=== PATIENT | female | born 1945 | race Caucasian/White ===

== ENCOUNTER 2017-03-12 07:11 | Outpatient (CLI) | payer MEDICARE, BC ==
[2017-03-12 19:02] LABS: BASOPHILS % (AUTO) 0.7 %; EOSINOPHILS # (AUTO) 0.4 10^3/uL (0.0-0.7); EOSINOPHILS % (AUTO) 9.1 %; HCT - HEMATOCRIT 34.9 % (37.0-47.0); HGB - HEMOGLOBIN 11.6 g/dL (12.0-16.0); LYMPHOCYTES # (AUTO) 1.2 10^3/uL (1.5-3.5); LYMPHOCYTES % (AUTO) 25.6 %; MEAN CORPUSCULAR HEMOGLOBIN 31.2 pg (27.0-31.0); MEAN CORPUSCULAR HGB CONC 33.3 g/dL (32.0-36.0); MEAN CORPUSCULAR VOLUME 93.7 fL (81.0-99.0); MEAN PLATELET VOLUME 9.8 fL (7.9-10.8); MONOCYTES # (AUTO) 0.5 10^3/uL (0.0-1.0); MONOCYTES % (AUTO) 11.2 %; NEUTROPHILS # (AUTO) 2.4 10^3/uL (1.5-6.6); NEUTROPHILS % (AUTO) 53.4 %; NUCLEATED RED BLOOD CELLS AUTO 0.1 /100WBC; RED BLOOD COUNT 3.72 10^6/uL (4.20-5.40); RED CELL DISTRIBUTION WIDTH 13.7 % (12.0-15.0); UNCORRECTED WHITE BLOOD COUNT 4.5 x10^3/uL; WHITE BLOOD COUNT 4.5 x10^3/uL (4.8-10.8)
[2017-03-12 19:24] LABS: ALBUMIN/GLOBULIN RATIO 1.3 (1.0-2.2); BILIRUBIN,TOTAL 0.8 mg/dL (0.2-1.0); BUN - BLOOD UREA NITROGEN 17 mg/dL (6-20); CALCIUM 9.5 mg/dL (8.5-10.3); CARBON DIOXIDE - CO2 30 mmol/L (21-32); CHLORIDE 98 mmol/L (101-111); CHOL/HDL RATIO 2.3 (<4.4); CHOLESTEROL 192 mg/dL; CREATININE 0.9 mg/dL (0.4-1.0); GFR - MDRD 62 (>89); GLUCOSE 102 mg/dL (70-100); HDL CHOLESTEROL 85 mg/dL; LDL/HDL RATIO 1.2 (<4.4); POTASSIUM 3.9 mmol/L (3.5-5.0); SODIUM 136 mmol/L (135-145); TOTAL PROTEIN 7.3 g/dL (6.7-8.2); TRIGLYCERIDES 46 mg/dL; VLDL CHOLESTEROL 9 mg/dL
[2017-03-12 19:39] LABS: HEMOGLOBIN A1C 0.46 g/dL
== END 2017-03-12 07:12 | disposition home or self-care (01) ==
LOC: LAB.WCP 07:11
PROVIDERS: ATTEND Family Medicine
DX: R73.01 Impaired fasting glucose (principal); E78.5 Hyperlipidemia, unspecified; I48.0 Paroxysmal atrial fibrillation; I10 Essential (primary) hypertension
CPT/HCPCS: 36415; 80053; 80061; 83036; 84443; 85025

== ENCOUNTER 2017-05-16 12:15 | Outpatient (CLI) | payer MEDICARE, BC | END 2017-05-16 12:16 | disposition home or self-care (01) | LOC: LAB.WCP 12:15 | PROVIDERS: ATTEND Family Medicine | DX: L08.89 Other specified local infections of the skin and subcutaneous tissue (principal) | CPT/HCPCS: 87070; 87205 ==

== ENCOUNTER 2017-11-15 09:45 | Outpatient (CLI) | payer MEDICARE, BC | END 2017-11-15 09:46 | disposition home or self-care (01) | LOC: LAB.WCP 09:45 | PROVIDERS: ATTEND Family Medicine | DX: N39.0 Urinary tract infection, site not specified (principal) | CPT/HCPCS: 87086 ==

== ENCOUNTER 2018-01-08 08:00 | Outpatient (CLI) | payer MEDICARE, BC | END 2018-01-08 08:01 | disposition home or self-care (01) | LOC: LAB.R 08:00 | PROVIDERS: ATTEND Family Medicine | DX: N39.0 Urinary tract infection, site not specified (principal) | CPT/HCPCS: 87077; 87086 ==

== ENCOUNTER 2018-01-30 08:00 | Outpatient (CLI) | payer MEDICARE, BC ==
[2018-01-30 12:56] LABS: BASOPHILS % (AUTO) 0.8 %; EOSINOPHILS # (AUTO) 0.2 10^3/uL (0.0-0.7); EOSINOPHILS % (AUTO) 3.3 %; HGB - HEMOGLOBIN 10.6 g/dL (12.0-16.0); LYMPHOCYTES # (AUTO) 0.5 10^3/uL (1.5-3.5); MEAN CORPUSCULAR HEMOGLOBIN 30.7 pg (27.0-31.0); MEAN CORPUSCULAR HGB CONC 33.9 g/dL (32.0-36.0); MEAN CORPUSCULAR VOLUME 90.6 fL (81.0-99.0); MEAN PLATELET VOLUME 10.8 fL (7.9-10.8); MONOCYTES # (AUTO) 0.6 10^3/uL (0.0-1.0); MONOCYTES % (AUTO) 10.7 %; NEUTROPHILS # (AUTO) 4.4 10^3/uL (1.5-6.6); NEUTROPHILS % (AUTO) 76.2 %; PLT - PLATELET COUNT 166 10^3/uL (130-450); RED BLOOD COUNT 3.44 10^6/uL (4.20-5.40); RED CELL DISTRIBUTION WIDTH 14.9 % (12.0-15.0); WHITE BLOOD COUNT 5.8 x10^3/uL (4.8-10.8)
[2018-01-30 13:04] LABS: ALBUMIN/GLOBULIN RATIO 1.3 (1.0-2.2); BILIRUBIN,TOTAL 1.1 mg/dL (0.2-1.0); CALCIUM 9.4 mg/dL (8.5-10.3); CREATININE 1.1 mg/dL (0.4-1.0); TOTAL PROTEIN 7.2 g/dL (6.7-8.2)
[2018-01-30 13:08] LABS: HB2 TOTAL 11.3 g/dL; HEMOGLOBIN A1C 0.44 g/dL; HEMOGLOBIN A1C % 5.7 % (4.6-6.2)
== END 2018-01-30 08:01 | disposition home or self-care (01) ==
LOC: LAB.WCP 08:00
PROVIDERS: ATTEND Family Medicine
DX: R06.09 Other forms of dyspnea (principal); R73.01 Impaired fasting glucose
CPT/HCPCS: 36415; 80053; 83036; 83880; 85025

== ENCOUNTER 2018-04-04 10:44 | Outpatient (CLI) | payer MEDICARE, BC | END 2018-04-04 10:45 | disposition home or self-care (01) | LOC: LAB.R 10:44 | PROVIDERS: ATTEND Family Medicine | DX: R19.7 Diarrhea, unspecified (principal) | CPT/HCPCS: 81599; 83630; 87045; 87046; 87177; 87209; 87329; 87493 ==

== ENCOUNTER 2018-04-12 14:03 | Outpatient (CLI) | payer MEDICARE, BC ==
--- NOTE | 2018-04-12 15:39 | Ultrasound Report ---
Procedure Date: 04/12/2018 Accession Number: [id number] / [id number] Procedure: US - Breast Unilateral Limited CPT Code: FULL RESULT: EXAM: Breast Unilateral Limited DATE: 04/12/2018 3:32 PM CLINICAL HISTORY: LT AXILLA LUMP TECHNIQUE: Ultrasound of the palpable regions identified by the patient was performed, with herbicide service sales representative static images obtained. COMPARISON: Mammogram same day FINDINGS: In the left axilla, normal axillary lymph nodes are seen. No discrete solid or cystic mass is identified. No sonographically suspicious findings are appreciated. IMPRESSION: Negative examination. Recommendation: Routine annual screening, next due in August 2018, unless otherwise clinically indicated. BI-RADS Category 1 negative
--- NOTE | 2018-04-12 15:41 | Mammography Report ---
Procedure Date: 04/12/2018 Accession Number: [id number] / [id number] Procedure: VERNON - Diagnostic Dig LT CPT Code: FULL RESULT: EXAM: Diagnostic Dig LT DATE: 04/12/2018 2:31 PM CLINICAL HISTORY: Palpable abnormality left axilla, pain TECHNIQUE: Left CC, MLO, true lateral views COMPARISON: 08/09/2017, 07/05/2016, 06/21/2015, 03/09/2014, 12/27/2012, 12/08/2010 FINDINGS: The left breast demonstrates diffuse fatty replacement. No suspicious masses, clustered microcalcifications, or regions of architectural distortion are identified. Specifically, no mammographic abnormality is appreciated in the left axillary tail, at the marker placed on the palpable abnormality identified by the patient. Please also refer to left breast ultrasound of the same day. IMPRESSION: Negative examination RECOMMENDATION: Routine annual screening, next due in August 2018, unless otherwise clinically indicated. BIRADS CATEGORY 1: Negative STANDARD QUALIFYING STATEMENTS: 1. This examination was reviewed with the aid of Computer-Aided Detection (CAD). 2. A negative or benign imaging report should not delay biopsy if clinically suspicious findings are present. Consider surgical consultation if warrented. More than 5% of cancers are not identified by imaging. 3. Dense breasts may obscure an underlying neoplasm.
== END 2018-04-12 14:04 | disposition home or self-care (01) ==
LOC: DI 14:03
PROVIDERS: ATTEND Family Medicine
DX: N63.21 Unspecified lump in the left breast, upper outer quadrant (principal)
CPT/HCPCS: 76642

== ENCOUNTER 2018-05-06 16:58 | Outpatient (CLI) | payer MEDICARE, BC ==
[2018-05-06 17:44] LABS: ALBUMIN 4.2 g/dL (3.2-5.5); ALBUMIN/GLOBULIN RATIO 1.2 (1.0-2.2); BILIRUBIN,TOTAL 0.8 mg/dL (0.2-1.0); CALCIUM 9.5 mg/dL (8.5-10.3); TOTAL PROTEIN 7.6 g/dL (6.7-8.2)
[2018-05-06 17:58] LABS: BASOPHILS % (AUTO) 0.8 %; EOSINOPHILS # (AUTO) 0.4 10^3/uL (0.0-0.7); EOSINOPHILS % (AUTO) 6.2 %; HGB - HEMOGLOBIN 12.5 g/dL (12.0-16.0); LYMPHOCYTES % (AUTO) 17.9 %; MEAN CORPUSCULAR HEMOGLOBIN 30.3 pg (27.0-31.0); MEAN CORPUSCULAR HGB CONC 33.5 g/dL (32.0-36.0); MEAN CORPUSCULAR VOLUME 90.6 fL (81.0-99.0); MEAN RETIC VALUE 113.9; MONOCYTES # (AUTO) 0.8 10^3/uL (0.0-1.0); MONOCYTES % (AUTO) 13.7 %; NEUTROPHILS # (AUTO) 3.6 10^3/uL (1.5-6.6); NEUTROPHILS % (AUTO) 61.4 %; PLT - PLATELET COUNT 173 10^3/uL (130-450); RED BLOOD COUNT 4.11 10^6/uL (4.20-5.40); RED CELL DISTRIBUTION WIDTH 15.1 % (12.0-15.0); WHITE BLOOD COUNT 5.8 x10^3/uL (4.8-10.8)
== END 2018-05-06 16:59 | disposition home or self-care (01) ==
LOC: LAB 16:58
PROVIDERS: ATTEND Internal Medicine Gastroenterology
DX: Z80.0 Family history of malignant neoplasm of digestive organs (principal); D64.9 Anemia, unspecified; R13.10 Dysphagia, unspecified; K21.9 Gastro-esophageal reflux disease without esophagitis; Z79.01 Long term (current) use of anticoagulants
CPT/HCPCS: 36415; 80053; 82607; 82746; 83540; 84466; 85025; 85044; 85651

== ENCOUNTER 2018-05-17 15:15 | Outpatient (CLI) | payer MEDICARE, BC | END 2018-05-17 15:16 | disposition home or self-care (01) | LOC: LAB.R 15:15 | PROVIDERS: ATTEND Family Medicine | DX: N39.0 Urinary tract infection, site not specified (principal) | CPT/HCPCS: 87086 ==

== ENCOUNTER 2018-09-10 08:00 | Outpatient (CLI) | payer MEDICARE, BC ==
[2018-09-10 19:48] LABS: BILIRUBIN,URINE NEGATIVE (NEGATIVE); GLUCOSE, URINE (UA) NEGATIVE (NEGATIVE); KETONES,URINE (UA) NEGATIVE (NEGATIVE); LEUKOCYTE ESTERASE, URINE NEGATIVE (NEGATIVE); NITRITE,URINE NEGATIVE (NEGATIVE); OCCULT BLOOD,URINE TRACE-LYSE (NEGATIVE); PH,URINE 6.5 PH (5.0-7.5); PROTEIN,URINE NEGATIVE (NEGATIVE); UROBILINOGEN,URINE 0.2 (NORMAL) E.U./dL (NORMAL)
[2018-09-10 19:53] LABS: CLARITY,URINE CLEAR (CLEAR)
[2018-09-10 20:05] LABS: BACTERIA,URINE None Seen /HPF (None Seen); RBC,URINE None Seen /HPF (0-5); SQUAMOUS EPITHELIAL CELL,UR FEW Squamous (<= Few)
== END 2018-09-10 23:59 | disposition home or self-care (01) ==
LOC: LAB.R 08:00
PROVIDERS: ATTEND Family Medicine
DX: N10 Acute pyelonephritis (principal)
CPT/HCPCS: 81001; 87086

== ENCOUNTER 2018-10-21 08:00 | Outpatient (CLI) | payer MEDICARE, BC ==
[2018-10-21 19:18] LABS: BASOPHILS # (AUTO) 0.1 10^3/uL (0.0-0.1); BASOPHILS % (AUTO) 0.8 %; EOSINOPHILS # (AUTO) 0.4 10^3/uL (0.0-0.7); EOSINOPHILS % (AUTO) 6.5 %; HGB - HEMOGLOBIN 11.6 g/dL (12.0-16.0); LYMPHOCYTES % (AUTO) 15.5 %; MEAN CORPUSCULAR HEMOGLOBIN 30.6 pg (27.0-31.0); MEAN CORPUSCULAR HGB CONC 33.1 g/dL (32.0-36.0); MEAN CORPUSCULAR VOLUME 92.3 fL (81.0-99.0); MEAN PLATELET VOLUME 10.2 fL (7.9-10.8); MONOCYTES # (AUTO) 0.7 10^3/uL (0.0-1.0); MONOCYTES % (AUTO) 10.6 %; NEUTROPHILS # (AUTO) 4.3 10^3/uL (1.5-6.6); NEUTROPHILS % (AUTO) 66.6 %; PLT - PLATELET COUNT 194 10^3/uL (130-450); RED CELL DISTRIBUTION WIDTH 14.2 % (12.0-15.0); WHITE BLOOD COUNT 6.4 x10^3/uL (4.8-10.8)
[2018-10-21 19:38] LABS: HB2 TOTAL 12.2 g/dL; HEMOGLOBIN A1C 0.54 g/dL; HEMOGLOBIN A1C % 6.2 % (4.6-6.2)
[2018-10-21 19:59] LABS: ALBUMIN 3.9 g/dL (3.2-5.5); ALBUMIN/GLOBULIN RATIO 1.1 (1.0-2.2); ALKALINE PHOSPHATASE 35 IU/L (42-121); ALT ALANINE AMINOTRANSFERASE 18 IU/L (10-60); AST ASPARTATE AMINOTRANSFERASE 25 IU/L (10-42); BILIRUBIN,TOTAL 0.9 mg/dL (0.2-1.0); BUN - BLOOD UREA NITROGEN 19 mg/dL (6-20); CALCIUM 9.4 mg/dL (8.5-10.3); CARBON DIOXIDE - CO2 31 mmol/L (21-32); CHLORIDE 99 mmol/L (101-111); CHOL/HDL RATIO 2.4 (<4.4); CHOLESTEROL 167 mg/dL; GFR - MDRD 55 (>89); GLUCOSE 107 mg/dL (70-100); HDL CHOLESTEROL 70 mg/dL; LDL CHOLESTEROL,CALCULATED 85 mg/dL; LDL/HDL RATIO 1.2 (<4.4); SODIUM 136 mmol/L (135-145); TOTAL PROTEIN 7.3 g/dL (6.7-8.2); VLDL CHOLESTEROL 12 mg/dL
== END 2018-10-21 23:59 | disposition home or self-care (01) ==
LOC: LAB.WCP 08:00
PROVIDERS: ATTEND Family Medicine
DX: I10 Essential (primary) hypertension (principal); R73.01 Impaired fasting glucose; E78.5 Hyperlipidemia, unspecified; D50.9 Iron deficiency anemia, unspecified
CPT/HCPCS: 36415; 80053; 80061; 83036; 83721; 85025

== ENCOUNTER 2018-11-18 14:00 | Outpatient (CLI) | payer MEDICARE, BC ==
--- NOTE | 2018-11-19 06:12 | Mammography Report ---
Reason: ANNUAL SCREENING Procedure Date: 11/18/2018 Accession Number: [id number] / [id number] Procedure: VERNON - Screening Mammo w/Young CPT Code: FULL RESULT: EXAM: Screening Mammo w/Young DATE: 11/18/2018 3:46 PM CLINICAL HISTORY: Routine screening TECHNIQUE: Bilateral CC and MLO views were obtained. COMPARISON: 04/12/2018, 08/09/2017, 07/05/2016 and 06/21/2015 FINDINGS: There are scattered fibroglandular densities. There has been no significant interval change. No suspicious masses, clustered microcalcifications, or regions of architectural distortion are identified. Benign appearing vascular calcification and axillary lymph nodes are stable. IMPRESSION: Benign findings RECOMMENDATION: Routine annual screening unless otherwise clinically indicated. BIRADS CATEGORY 2: Benign findings STANDARD QUALIFYING STATEMENTS: 1. This examination was not reviewed with the aid of Computer-Aided Detection (CAD). 2. A negative or benign imaging report should not delay biopsy if clinically suspicious findings are present. Consider surgical consultation if warrented. More than 5% of cancers are not identified by imaging. 3. Dense breasts may obscure an underlying neoplasm. 4. This examination was reviewed with the aid of 3D breast imaging (tomosynthesis).
== END 2018-11-18 14:01 | disposition home or self-care (01) ==
LOC: DI 14:00
DX: Z12.31 Encounter for screening mammogram for malignant neoplasm of breast (principal)
CPT/HCPCS: 77063; 77067

== ENCOUNTER 2018-11-22 10:24 | Outpatient (CLI) | payer MEDICARE, BC | END 2018-11-22 23:59 | disposition home or self-care (01) | LOC: LAB.WCP 10:24 | PROVIDERS: ATTEND Family Medicine | DX: N39.0 Urinary tract infection, site not specified (principal) | CPT/HCPCS: 87086; 87181 ==

== ENCOUNTER 2018-12-18 08:00 | Outpatient (CLI) | payer MEDICARE, BC | END 2018-12-18 23:59 | disposition home or self-care (01) | LOC: LAB.WCP 08:00 | PROVIDERS: ATTEND Family Medicine | DX: I48.0 Paroxysmal atrial fibrillation (principal); Z79.01 Long term (current) use of anticoagulants ==

== ENCOUNTER 2019-01-15 11:47 | Outpatient (CLI) | payer MEDICARE, BC ==
[2019-01-15 19:19] LABS: BASOPHILS # (AUTO) 0.1 10^3/uL (0.0-0.1); BASOPHILS % (AUTO) 1.2 %; EOSINOPHILS # (AUTO) 0.5 10^3/uL (0.0-0.7); EOSINOPHILS % (AUTO) 8.1 %; HGB - HEMOGLOBIN 12.4 g/dL (12.0-16.0); LYMPHOCYTES # (AUTO) 1.2 10^3/uL (1.5-3.5); LYMPHOCYTES % (AUTO) 20.2 %; MEAN CORPUSCULAR HEMOGLOBIN 30.3 pg (27.0-31.0); MEAN CORPUSCULAR HGB CONC 33.3 g/dL (32.0-36.0); MEAN CORPUSCULAR VOLUME 91.2 fL (81.0-99.0); MEAN PLATELET VOLUME 10.3 fL (7.9-10.8); MONOCYTES # (AUTO) 0.6 10^3/uL (0.0-1.0); MONOCYTES % (AUTO) 10.4 %; NEUTROPHILS # (AUTO) 3.5 10^3/uL (1.5-6.6); NEUTROPHILS % (AUTO) 60.1 %; PLT - PLATELET COUNT 170 10^3/uL (130-450); RED CELL DISTRIBUTION WIDTH 15.4 % (12.0-15.0); WHITE BLOOD COUNT 5.8 x10^3/uL (4.8-10.8)
[2019-01-15 19:37] LABS: HEMOGLOBIN A1C 0.58 g/dL; HEMOGLOBIN A1C % 6.2 % (4.6-6.2)
[2019-01-15 19:40] LABS: ALBUMIN 4.3 g/dL (3.2-5.5); ALBUMIN/GLOBULIN RATIO 1.4 (1.0-2.2); ALKALINE PHOSPHATASE 33 IU/L (42-121); ALT ALANINE AMINOTRANSFERASE 19 IU/L (10-60); AST ASPARTATE AMINOTRANSFERASE 26 IU/L (10-42); BILIRUBIN,TOTAL 1.1 mg/dL (0.2-1.0); BUN - BLOOD UREA NITROGEN 24 mg/dL (6-20); CALCIUM 9.4 mg/dL (8.5-10.3); CARBON DIOXIDE - CO2 30 mmol/L (21-32); CHLORIDE 101 mmol/L (101-111); CHOL/HDL RATIO 2.3 (<4.4); CHOLESTEROL 190 mg/dL; GFR - MDRD 55 (>89); GLUCOSE 102 mg/dL (70-100); HDL CHOLESTEROL 83 mg/dL; LDL CHOLESTEROL,CALCULATED 97 mg/dL; LDL/HDL RATIO 1.2 (<4.4); SODIUM 136 mmol/L (135-145); TOTAL PROTEIN 7.4 g/dL (6.7-8.2); VLDL CHOLESTEROL 10 mg/dL
[2019-01-15 19:43] LABS: THYROID STIMULATING HORMONE 3.2 uIU/mL (0.34-5.60)
[2019-01-15 19:48] LABS: FERRITIN 66.1 ng/mL (11.0-306.8)
== END 2019-01-15 11:48 | disposition home or self-care (01) ==
LOC: LAB.WCP 11:47
PROVIDERS: ATTEND Family Medicine
DX: R73.01 Impaired fasting glucose (principal); D50.9 Iron deficiency anemia, unspecified; E78.5 Hyperlipidemia, unspecified; N28.9 Disorder of kidney and ureter, unspecified; I48.0 Paroxysmal atrial fibrillation
CPT/HCPCS: 36415; 80053; 80061; 82607; 82728; 83036; 83721; 84443; 85025

== ENCOUNTER 2019-02-14 13:09 | Outpatient (CLI) | payer MEDICARE, BC | END 2019-02-14 13:10 | disposition home or self-care (01) | LOC: RT 13:09 | PROVIDERS: ATTEND Nurse Practitioner Family | DX: I48.91 Unspecified atrial fibrillation (principal) | CPT/HCPCS: 93005 ==

== ENCOUNTER 2019-02-14 13:49 | Emergency (ER) | payer MEDICARE, BC ==
--- NOTE | 2019-02-14 14:32 | XRAY Report ---
Reason: light headed, recent AFIB Procedure Date: 02/14/2019 Accession Number: [id number] / [id number] Procedure: XR - Chest 2 View X-Ray CPT Code: 36420 FULL RESULT: EXAM: CHEST RADIOGRAPHY EXAM DATE: 02/14/2019 02:16 PM. CLINICAL HISTORY: Light headed, recent AFIB. COMPARISON: XR CHEST PA AND LAT 12/19/2012 9:17 PM. TECHNIQUE: 2 views. FINDINGS: Lungs/Pleura: No focal opacities evident. No pleural effusion. No pneumothorax. Normal volumes. Mediastinum: Stable mild cardiomegaly and subtle calcifications of the aortic arch. Other: The bones are qualitatively osteopenic; this limits evaluation for underlying fractures or masses. Mild thoracic kyphosis in this setting is again seen. IMPRESSION: Stable cardiomegaly with no acute cardiopulmonary abnormality detected. RADIA
[2019-02-14 15:03] LABS: BASOPHILS % (AUTO) 0.7 %; EOSINOPHILS # (AUTO) 0.3 10^3/uL (0.0-0.7); EOSINOPHILS % (AUTO) 4.8 %; HGB - HEMOGLOBIN 10.5 g/dL (12.0-16.0); LYMPHOCYTES # (AUTO) 0.7 10^3/uL (1.5-3.5); LYMPHOCYTES % (AUTO) 11.4 %; MEAN CORPUSCULAR HEMOGLOBIN 30.7 pg (27.0-31.0); MEAN CORPUSCULAR HGB CONC 33.9 g/dL (32.0-36.0); MEAN CORPUSCULAR VOLUME 90.7 fL (81.0-99.0); MEAN PLATELET VOLUME 9.3 fL (7.9-10.8); MONOCYTES # (AUTO) 0.6 10^3/uL (0.0-1.0); MONOCYTES % (AUTO) 10.6 %; NEUTROPHILS # (AUTO) 4.4 10^3/uL (1.5-6.6); NEUTROPHILS % (AUTO) 72.5 %; PLT - PLATELET COUNT 140 10^3/uL (130-450); RED BLOOD COUNT 3.41 10^6/uL (4.20-5.40); RED CELL DISTRIBUTION WIDTH 14.8 % (12.0-15.0)
[2019-02-14 15:17] LABS: ALBUMIN 3.8 g/dL (3.2-5.5); BILIRUBIN,TOTAL 1.3 mg/dL (0.2-1.0); CALCIUM 9.1 mg/dL (8.5-10.3); TOTAL PROTEIN 7.5 g/dL (6.7-8.2)
--- NOTE | 2019-02-14 15:17 | ED Physician Documentation ---
PD HPI DYSPNEA - Stated complaint Stated Complaint: SOB/DIZZINESS - Chief complaint Chief Complaint: Cardiac - History obtained from History obtained from: Patient - History of Present Illness Timing - onset: How many days ago (2) Timing - details: Still present Recently seen: Other (Underwent cardioversion for atrial fibrillation in the hospital in [place] 3 days ago.) - Additional information Additional information: The patient is a 73-year-old female with a history of diabetes, sleep apnea, and atrial fibrillation, who complains of feeling lightheaded when standing for the past 2 or 3 days. She reports associated shortness of breath. She denies chest pain, fever, cough, or abdominal pain. 3 days ago she underwent cardioversion for atrial fibrillation in [place]. She is currently on warfarin. Review of Systems Constitutional: reports: Other (Lightheaded when standing.). denies: Fever Eyes: denies: Decreased vision Ears: denies: Tinnitus/ringing Nose: denies: Congestion Throat: denies: Sore throat Cardiac: denies: Chest pain / pressure Respiratory: reports: Dyspnea. denies: Cough GI: denies: Abdominal Pain, Nausea, Vomiting : denies: Dysuria Skin: denies: Rash Musculoskeletal: denies: Back pain, Extremity swelling Neurologic: denies: Focal weakness, Numbness, Headache PD PAST MEDICAL HISTORY - Past Medical History Cardiovascular: Hypertension, High cholesterol, Atrial fibrillation Respiratory: Sleep apnea, CPAP use Endocrine/Autoimmune: Type 2 diabetes GI: GERD : None HEENT: Other Psych: Depression Musculoskeletal: Osteoarthritis, Chronic back pain Derm: None - Past Surgical History General: Cholecystectomy, Appendectomy Ortho: Knee replacement, Rotator cuff repair, Shoulder arthroplasty, Arthroscopic surgery /ADULT SERVICES LIBRARIAN: Hysterectomy - Present Medications Home Medications: Ambulatory Orders Medication Instructions Recorded Confirmed Carvedilol [Coreg] 6.25 mg PO BID 02/02/14 08/29/17 Citalopram [CeleXA] 20 mg PO DAILY PM 02/02/14 08/29/17 Cyclosporine [Restasis] 1 each OP BID 02/02/14 08/29/17 Hydrochlorothiazide 25 mg PO DAILY 02/02/14 08/29/17 Losartan [Cozaar] 100 mg PO DAILY PM 02/02/14 08/29/17 Metformin HCl [Metformin HCl ER] 500 mg PO DAILY 02/02/14 08/29/17 Simvastatin 40 mg PO DAILY PM 02/02/14 08/29/17 Warfarin Sodium [Jantoven] 7.5 mg PO DAILY PM 02/02/14 08/29/17 Multivitamin [Multivitamins] 1 tab DAILY PM 04/13/14 08/29/17 Acetaminophen [Tylenol Arthritis] 650 mg PO BID 05/31/17 08/29/17 Calcium Carbonate/Vitamin D3 1 tab PO BID 05/31/17 08/29/17 [Calcium 600-Vit D3 400 Tablet] Cholecalciferol (Vitamin D3) 2,000 units PO DAILY 05/31/17 08/29/17 [Vitamin D3] Estradiol [Estrace] 42.5 gm VG ONCE PRN 05/31/17 08/29/17 Flecainide [Tambocar] 50 mg PO BID 05/31/17 08/29/17 Gluc Roche Dipo Ch/Jose Roche/C/Aj 1,200 - 1,500 mg PO BID 05/31/17 08/29/17 [Glucosamine-Chondroitin Capsul] Ipratropium [Atrovent] 2 spray INH BID 05/31/17 08/29/17 Lactobac 41/B.bifid,Lactis/Fos 1 each PO DAILY 05/31/17 08/29/17 [Ultimate Probiotic-10 25 Billn] Loteprednol Etabonate [Lotemax] 1 ea EACHEYE BID 05/31/17 08/29/17 Magnesium 250 mg PO DAILY 05/31/17 08/29/17 Bern-3S/Dha/Epa/Fish Oil [Fish 1 each PO BID 05/31/17 08/29/17 Oil 1,200 mg Softgel] Omeprazole [PriLOSEC] 20 mg PO DAILY 05/31/17 08/29/17 Potassium Chloride 10 meq PO DAILY PM 05/31/17 08/29/17 Psyllium Husk [Fiber] 2 cap PO BID 05/31/17 08/29/17 Senna [Senokot] 17.2 mg PO DAILY 05/31/17 08/29/17 Pilocarpine HCl 5 mg PO DAILY 10/05/17 10/05/17 - Allergies Allergies/Adverse Reactions: Allergies Allergy/AdvReac Type Severity Reaction Status Date / Time Sulfa (Sulfonamide Allergy Mild Rash Verified 02/02/14 15:36 Antibiotics) codeine AdvReac Mild Nausea Verified 02/02/14 15:36 enoxaparin sodium * AdvReac Edema Verified 04/14/14 12:05 [From Lovenox] - Social History Smoking Status: Never smoker PD ED PE NORMAL - Vitals Vital signs reviewed: Yes (normal) - General General: Alert and oriented X 3, Well developed/nourished - HEENT HEENT: Atraumatic, Moist mucous membranes, Pharynx benign - Neck Neck: No adenopathy, No JVD - Cardiac Cardiac: RRR, No murmur - Respiratory Respiratory: No respiratory distress, Clear bilaterally - Abdomen Abdomen: Soft, Non tender - Back Back: No CVA TTP - Derm Derm: No rash - Extremities Extremities: No edema, No calf tenderness / cord - Neuro Neuro: Alert and oriented X 3, No motor deficit, No sensory deficit Results - Vitals Vitals: Oxygen O2 Source [] Room air O2 Source [] Room air O2 Source Room air - EKG (time done) 14:03 Rate: Rate (enter#) (54) Rhythm: NSR Intervals: Prolonged DC QRS: Low voltage Ischemia: Non specific changes (Diffuse T-wave flattening.) Computer interpretation: Agree with computer - Labs Labs: Laboratory Tests 02/14/19 02/14/19 02/14/19 14:57 14:57 14:57 WBC 6.0 RBC 3.41 L Hgb 10.5 L Hct 30.9 L MCV 90.7 MCH 30.7 MCHC 33.9 RDW 14.8 Plt Count 140 MPV 9.3 Neut # (Auto) 4.4 Lymph # (Auto) 0.7 L [place] # (Auto) 0.6 Eos # (Auto) 0.3 Baso # (Auto) 0.0 Absolute Nucleated RBC 0.00 Nucleated RBC % 0.1 PT INR Sodium 139 Potassium 4.0 Chloride 101 Carbon Dioxide 29 Anion Gap 9.0 BUN 23 H Creatinine 1.0 Estimated GFR (MDRD) 55 L Glucose 125 H Calcium 9.1 Total Bilirubin 1.3 H AST 32 ALT 43 Alkaline Phosphatase 38 L Troponin I < 0.04 B-Natriuretic Peptide Total Protein 7.5 Albumin 3.8 Globulin 3.7 Albumin/Globulin Ratio 1.0 Lipase 28 Urine Color Urine Clarity Urine pH Ur Specific [place] Urine Protein Urine Glucose (UA) Urine Ketones Urine Occult Blood Urine Nitrite Urine Bilirubin Urine Urobilinogen Ur Leukocyte Esterase Ur Microscopic Review Urine Culture Comments 02/14/19 02/14/19 02/14/19 14:57 14:57 17:09 WBC RBC Hgb Hct MCV MCH MCHC RDW Plt Count MPV Neut # (Auto) Lymph # (Auto) [place] # (Auto) Eos # (Auto) Baso # (Auto) Absolute Nucleated RBC Nucleated RBC % PT 32.3 H INR 2.9 H Sodium Potassium Chloride Carbon Dioxide Anion Gap BUN Creatinine Estimated GFR (MDRD) Glucose Calcium Total Bilirubin AST ALT Alkaline Phosphatase Troponin I B-Natriuretic Peptide 243 H Total Protein Albumin Globulin Albumin/Globulin Ratio Lipase Urine Color YELLOW Urine Clarity CLEAR Urine pH 6.5 Ur Specific [place] 1.010 Urine Protein NEGATIVE Urine Glucose (UA) NEGATIVE Urine Ketones NEGATIVE Urine Occult Blood NEGATIVE Urine Nitrite NEGATIVE Urine Bilirubin NEGATIVE Urine Urobilinogen 0.2 (NORMAL) Ur Leukocyte Esterase NEGATIVE Ur Microscopic Review NOT INDICATED Urine Culture Comments NOT INDICATED - Rads (name of study) CXR Radiology: Prelim report reviewed, EMP read contemporaneously, See rad report (Stable cardiomegaly with no acute cardiopulmonary abnormality detected.) PD MEDICAL DECISION MAKING - ED course Complexity details: reviewed old records, reviewed results, re-evaluated patient, considered differential, d/w patient, d/w family ED course: The patient presented with orthostatic dizziness which is likely related to combined effect of the 3 cardiac medications she is taking: carvedilol, flecainide, and Cozaar. Her pulse was in the low 50s throughout her time in the emergency department, and does not change significantly when standing. She appears euvolemic, and there is no evidence of urinary tract infection, pulmonary infection, or acute cardiac ischemia. Her presentation does not suggest pulmonary embolus, and her INR is therapeutic at 2.9. I discussed with her the likely diagnosis, advising that she stagger her cardiac medications rather than taking them all at once. By the time of discharge she was able to demonstrate ability to ambulate without lightheadedness. I discussed with her the importance of outpatient follow-up, as well as potentially worrisome signs or symptoms that should prompt reevaluation in the emergency department. Departure - Departure Disposition: 01 Home, Self Care Clinical Impression: Orthostatic dizziness, History of atrial fibrillation Condition: Stable Instructions: ED Dizziness UKO Follow-Up: Angy Pearson MD [Provider Admit Priv/Credential] - Comments: Consider staggering your cardiac medications at different times of the day. When standing from a sitting or lying position, give yourself adequate time to equilibrate to the change in position. Follow-up with your primary physician within 1 to 2 weeks. Call to schedule an appointment. Return to the emergency department if you develop increasing dizziness, shortness of breath, chest pain, or otherwise worsening symptoms. Discharge Date/Time: 02/14/19 17:53
[2019-02-14 15:49] LABS: INR 2.9 (0.8-1.2); PT - PROTHROMBIN TIME 32.3 secs (9.9-12.6)
[2019-02-14 17:17] LABS: BILIRUBIN,URINE NEGATIVE (NEGATIVE); GLUCOSE, URINE (UA) NEGATIVE (NEGATIVE); KETONES,URINE (UA) NEGATIVE (NEGATIVE); LEUKOCYTE ESTERASE, URINE NEGATIVE (NEGATIVE); NITRITE,URINE NEGATIVE (NEGATIVE); OCCULT BLOOD,URINE NEGATIVE (NEGATIVE); PH,URINE 6.5 PH (5.0-7.5); PROTEIN,URINE NEGATIVE (NEGATIVE); UROBILINOGEN,URINE 0.2 (NORMAL) E.U./dL (NORMAL)
[2019-02-14 17:20] VITALS: BP 142/75
[2019-02-14 17:23] LABS: CLARITY,URINE CLEAR (CLEAR)
== END 2019-02-14 17:53 | disposition home or self-care (01) ==
LOC: ED 13:49
DX: R42 Dizziness and giddiness (principal); I10 Essential (primary) hypertension; E11.9 Type 2 diabetes mellitus without complications; Z79.84 Long term (current) use of oral hypoglycemic drugs; Z79.01 Long term (current) use of anticoagulants; Z86.79 Personal history of other diseases of the circulatory system; I48.91 Unspecified atrial fibrillation
CPT/HCPCS: 36415; 71046; 80053; 81001; 81003; 83690; 83880; 84484; 85025; 85610; 87086; 93005; 99283; 99284

== ENCOUNTER 2019-03-10 10:31 | Outpatient (CLI) | payer MEDICARE, BC | END 2019-03-10 10:32 | disposition home or self-care (01) | LOC: RT 10:31 | PROVIDERS: ATTEND Physician Assistant | DX: I48.0 Paroxysmal atrial fibrillation (principal) | CPT/HCPCS: 93005 ==

== ENCOUNTER 2019-04-03 21:16 | Outpatient (CLI) | payer MEDICARE, BC ==
[2019-04-03 21:56] LABS: BASOPHILS # (AUTO) 0.1 10^3/uL (0.0-0.1); BASOPHILS % (AUTO) 0.7 %; EOSINOPHILS # (AUTO) 0.5 10^3/uL (0.0-0.7); EOSINOPHILS % (AUTO) 6.6 %; HGB - HEMOGLOBIN 12.2 g/dL (12.0-16.0); LYMPHOCYTES # (AUTO) 1.1 10^3/uL (1.5-3.5); LYMPHOCYTES % (AUTO) 15.8 %; MEAN CORPUSCULAR HGB CONC 32.7 g/dL (32.0-36.0); MEAN CORPUSCULAR VOLUME 94.7 fL (81.0-99.0); MEAN PLATELET VOLUME 11.4 fL (7.9-10.8); MONOCYTES % (AUTO) 13.2 %; NEUTROPHILS # (AUTO) 4.5 10^3/uL (1.5-6.6); NEUTROPHILS % (AUTO) 63.3 %; PLT - PLATELET COUNT 181 10^3/uL (130-450); RED BLOOD COUNT 3.94 10^6/uL (4.20-5.40); RED CELL DISTRIBUTION WIDTH 13.6 % (12.0-15.0); WHITE BLOOD COUNT 7.2 x10^3/uL (4.8-10.8)
[2019-04-03 22:12] LABS: CALCIUM 9.7 mg/dL (8.5-10.3)
--- NOTE | 2019-04-03 23:01 | Ultrasound Report ---
Reason: JOINT EFFUSION,RIGHT KNEE,LEG EDEMA,RIGHT Procedure Date: 04/03/2019 Accession Number: [id number] / [id number] Procedure: US - Duplex Ext Veins Right CPT Code: FULL RESULT: EXAM: RIGHT LOWER EXTREMITY VENOUS ULTRASOUND EXAM DATE: 04/03/2019 10:31 PM. CLINICAL HISTORY: Right knee joint effusion, with right leg swelling. COMPARISON: None. TECHNIQUE: Real-time sonographic vascular imaging was performed by the rotary engine assembler through the lower extremity utilizing both color-flow and Doppler spectral analysis. Multiple special service representative static images were saved for review. FINDINGS: Common Femoral Vein (CFV): Normal. CFV-GSV Junction: Normal. Profunda Femoral Vein (PFV): Normal. Femoral Vein (FV) Prox: Normal. Femoral Vein (FV) Mid: Normal. Femoral Vein (FV) Dist: Normal. Popliteal Vein: Normal. Posterior Tibial Veins: Normal. Peroneal Veins: Normal. Contralateral Side CFV: Normal. Other: Small popliteal fluid collection, 1.1 x 0.4 x 0.7 cm. IMPRESSION: 1. No evidence for deep venous thrombosis. 2. Small Higgins's cyst. RADIA The call report notification system was initiated by Dr. Landon Dickens at 10:59 PM on 04/03/2019. ADDENDUM: 04/03/19 23:10 The above call report findings were discussed with Kenia Saldivar by Dr. Landon Dickens at 11:10 PM on 04/03/2019.
== END 2019-04-03 21:17 | disposition home or self-care (01) ==
LOC: DI 21:16
PROVIDERS: ATTEND Family Medicine
DX: M71.21 Synovial cyst of popliteal space [Baker], right knee (principal); R60.0 Localized edema; M25.461 Effusion, right knee; M13.10 Monoarthritis, not elsewhere classified, unspecified site
CPT/HCPCS: 80048; 85025; 85651; 86140

== ENCOUNTER 2019-04-16 08:00 | Outpatient (CLI) | payer MEDICARE, BC | END 2019-04-16 08:01 | disposition home or self-care (01) | LOC: LAB.WCP 08:00 | PROVIDERS: ATTEND Family Medicine | DX: I48.0 Paroxysmal atrial fibrillation (principal); Z79.01 Long term (current) use of anticoagulants ==

== ENCOUNTER 2019-05-14 08:00 | Outpatient (CLI) | payer MEDICARE, BC | END 2019-05-14 23:59 | disposition home or self-care (01) | LOC: LAB.WCP 08:00 | PROVIDERS: ATTEND Physician Assistant Medical | DX: I48.0 Paroxysmal atrial fibrillation (principal); Z79.01 Long term (current) use of anticoagulants ==

== ENCOUNTER 2019-05-14 12:13 | Outpatient (CLI) | payer MEDICARE, BC | END 2019-05-14 23:59 | disposition home or self-care (01) | LOC: LAB.R 12:13 | PROVIDERS: ATTEND Physician Assistant Medical | DX: N39.0 Urinary tract infection, site not specified (principal) | CPT/HCPCS: 87086 ==

== ENCOUNTER 2019-05-20 08:00 | Outpatient (CLI) | payer MEDICARE, BC | END 2019-05-20 23:59 | disposition home or self-care (01) | LOC: LAB.WCP 08:00 | PROVIDERS: ATTEND Family Medicine | DX: I48.0 Paroxysmal atrial fibrillation (principal); Z79.01 Long term (current) use of anticoagulants ==

== ENCOUNTER 2019-05-27 08:00 | Outpatient (CLI) | payer MEDICARE, BC | END 2019-05-27 23:59 | disposition home or self-care (01) | LOC: LAB.WCP 08:00 | PROVIDERS: ATTEND Family Medicine | DX: I48.0 Paroxysmal atrial fibrillation (principal); Z79.01 Long term (current) use of anticoagulants ==

== ENCOUNTER 2019-06-03 08:00 | Outpatient (CLI) | payer MEDICARE, BC | END 2019-06-03 23:59 | disposition home or self-care (01) | LOC: LAB.WCP 08:00 | PROVIDERS: ATTEND Family Medicine | DX: I48.0 Paroxysmal atrial fibrillation (principal); Z79.01 Long term (current) use of anticoagulants ==

== ENCOUNTER 2019-06-11 08:00 | Outpatient (CLI) | payer MEDICARE, BC | END 2019-06-11 23:59 | disposition home or self-care (01) | LOC: LAB.WCP 08:00 | PROVIDERS: ATTEND Family Medicine | DX: Z51.81 Encounter for therapeutic drug level monitoring (principal); Z79.01 Long term (current) use of anticoagulants ==

== ENCOUNTER 2019-06-26 08:30 | Outpatient (CLI) | payer MEDICARE, BC | END 2019-06-26 23:59 | disposition home or self-care (01) | LOC: LAB.R 08:30 | PROVIDERS: ATTEND Family Medicine | DX: N39.0 Urinary tract infection, site not specified (principal) | CPT/HCPCS: 87086 ==

== ENCOUNTER 2019-07-01 08:00 | Outpatient (CLI) | payer MEDICARE, BC | END 2019-07-01 23:59 | disposition home or self-care (01) | LOC: LAB.WCP 08:00 | PROVIDERS: ATTEND Family Medicine | DX: I48.0 Paroxysmal atrial fibrillation (principal); Z79.01 Long term (current) use of anticoagulants ==

== ENCOUNTER 2019-07-08 08:00 | Outpatient (CLI) | payer MEDICARE, BC | END 2019-07-08 23:59 | disposition home or self-care (01) | LOC: LAB.WCP 08:00 | PROVIDERS: ATTEND Family Medicine | DX: Z79.01 Long term (current) use of anticoagulants (principal); I48.0 Paroxysmal atrial fibrillation ==

== ENCOUNTER 2019-07-22 08:00 | Outpatient (CLI) | payer MEDICARE, BC | END 2019-07-22 23:59 | disposition home or self-care (01) | LOC: LAB.WCP 08:00 | PROVIDERS: ATTEND Physician Assistant Medical | DX: Z79.01 Long term (current) use of anticoagulants (principal); I48.0 Paroxysmal atrial fibrillation ==

== ENCOUNTER 2019-08-05 08:00 | Outpatient (CLI) | payer MEDICARE, BC | END 2019-08-05 23:59 | disposition home or self-care (01) | LOC: LAB.WCP 08:00 | PROVIDERS: ATTEND Family Medicine | DX: I48.0 Paroxysmal atrial fibrillation (principal); Z79.01 Long term (current) use of anticoagulants ==

== ENCOUNTER 2019-09-11 08:00 | Outpatient (CLI) | payer MEDICARE, BC | END 2019-09-11 23:59 | disposition home or self-care (01) | LOC: LAB.WCP 08:00 | PROVIDERS: ATTEND Family Medicine | DX: Z79.01 Long term (current) use of anticoagulants (principal); I48.0 Paroxysmal atrial fibrillation ==

== ENCOUNTER 2019-10-10 08:00 | Outpatient (CLI) | payer MEDICARE, BC | END 2019-10-10 23:59 | disposition home or self-care (01) | LOC: LAB 08:00 | PROVIDERS: ATTEND Physician Assistant | DX: Z79.01 Long term (current) use of anticoagulants (principal); I48.0 Paroxysmal atrial fibrillation ==

== ENCOUNTER 2019-10-17 08:00 | Outpatient (CLI) | payer MEDICARE, BC | END 2019-10-17 23:59 | disposition home or self-care (01) | LOC: LAB.WCP 08:00 | PROVIDERS: ATTEND Family Medicine | DX: Z79.01 Long term (current) use of anticoagulants (principal); I48.0 Paroxysmal atrial fibrillation ==

== ENCOUNTER 2019-11-14 08:00 | Outpatient (CLI) | payer MEDICARE, BC | END 2019-11-14 23:59 | disposition home or self-care (01) | LOC: LAB.WCP 08:00 | PROVIDERS: ATTEND Family Medicine | DX: I48.0 Paroxysmal atrial fibrillation (principal); Z79.01 Long term (current) use of anticoagulants ==

== ENCOUNTER 2019-11-17 13:00 | Outpatient (CLI) | payer MEDICARE, BC | END 2019-11-17 23:59 | LOC: LAB.R 13:00 | PROVIDERS: ATTEND Family Medicine | DX: N39.0 Urinary tract infection, site not specified (principal) | CPT/HCPCS: 87086; 87181 ==

== ENCOUNTER 2020-01-13 08:00 | Outpatient (CLI) | payer MEDICARE, BC | END 2020-01-13 23:59 | disposition home or self-care (01) | LOC: LAB.WCP 08:00 | PROVIDERS: ATTEND Family Medicine | DX: I48.0 Paroxysmal atrial fibrillation (principal); Z79.01 Long term (current) use of anticoagulants ==

== ENCOUNTER 2020-01-21 08:00 | Outpatient (CLI) | payer MEDICARE, BC | END 2020-01-21 23:59 | disposition home or self-care (01) | LOC: LAB.WCP 08:00 | PROVIDERS: ATTEND Family Medicine | DX: D50.9 Iron deficiency anemia, unspecified (principal); Z79.01 Long term (current) use of anticoagulants ==

== ENCOUNTER 2020-02-04 08:00 | Outpatient (CLI) | payer MEDICARE, BC ==
[2020-02-04 13:38] LABS: BASOPHILS # (AUTO) 0.1 10^3/uL (0.0-0.1); BASOPHILS % (AUTO) 0.5 %; EOSINOPHILS # (AUTO) 0.2 10^3/uL (0.0-0.7); HGB - HEMOGLOBIN 13.1 g/dL (12.0-16.0); LYMPHOCYTES # (AUTO) 0.8 10^3/uL (1.5-3.5); LYMPHOCYTES % (AUTO) 8.7 %; MEAN CORPUSCULAR VOLUME 90.7 fL (81.0-99.0); MEAN PLATELET VOLUME 11.9 fL (7.9-10.8); MONOCYTES # (AUTO) 0.8 10^3/uL (0.0-1.0); MONOCYTES % (AUTO) 8.4 %; NEUTROPHILS # (AUTO) 7.3 10^3/uL (1.5-6.6); NEUTROPHILS % (AUTO) 80.1 %; PLT - PLATELET COUNT 198 10^3/uL (130-450); RED BLOOD COUNT 4.52 10^6/uL (4.20-5.40); RED CELL DISTRIBUTION WIDTH 13.5 % (12.0-15.0); WHITE BLOOD COUNT 9.2 x10^3/uL (4.8-10.8)
[2020-02-04 14:17] LABS: ALBUMIN 4.3 g/dL (3.2-5.5); ALBUMIN/GLOBULIN RATIO 1.3 (1.0-2.2); BILIRUBIN,TOTAL 1.2 mg/dL (0.2-1.0); CALCIUM 9.5 mg/dL (8.5-10.3); CREATININE 1.1 mg/dL (0.4-1.0); TOTAL PROTEIN 7.7 g/dL (6.7-8.2)
== END 2020-02-04 23:59 | disposition home or self-care (01) ==
LOC: LAB.WCP 08:00
PROVIDERS: ATTEND Family Medicine
DX: R59.0 Localized enlarged lymph nodes (principal); I48.0 Paroxysmal atrial fibrillation; Z79.01 Long term (current) use of anticoagulants
CPT/HCPCS: 36415; 80053; 83615; 85025

== ENCOUNTER 2020-02-06 12:16 | Outpatient (CLI) | payer MEDICARE, BC ==
[2020-02-06] MEDS ORDERED: IOVERSOL 320 100 ML VIAL IVP ONE ×2 (12:26→13:04)
--- NOTE | 2020-02-06 19:36 | CT Report ---
Reason: CERVICAL LYMPHADENOPATHY Procedure Date: 02/06/2020 Accession Number: [id number] / [id number] Procedure: CT - SOFT TISSUE NECK W CPT Code: Final Report FULL RESULT: EXAM: CT NECK WITH CONTRAST COMPARISON: C-SPINE 02/08/2010 12:11 AM. CLINICAL HISTORY: Right-sided neck and midline anterior neck swelling. TECHNIQUE: Axial images were acquired through the neck after intravenous administration of iodinated contrast Optiray 320. Coronal and Sagittal reconstructions are created from source data. In accordance with CT protocol optimization, one or more of the following dose reduction techniques were utilized for this exam: automated exposure control, adjustment of mA and/or KV based on patient size, or use of iterative reconstructive technique. FINDINGS: The visualized intracranial content shows no evident abnormality. Globes are normal. No intraorbital mass. No evident paranasal sinusitis. Mastoids are clear. Middle ears are clear. Temporomandibular joints are normally located. No retropharyngeal fluid. Visualized right upper chest shows no pulmonary nodules or masses. No pneumothorax. Visualized left upper chest shows no pulmonary nodules or masses. No pneumothorax. Visualized upper mediastinum is unremarkable. Epiglottis is normal as is the base of tongue. ACL is demonstrated in the right submandibular duct (3, 53), measuring 3.7 mm. The duct is dilated, and peripherally enhancing. There is fairly extensive associated inflammation involving the right floor of mouth, as well as the right lateral pharyngeal wall. The right submandibular gland appears largely atrophic, the residual gland is quite inflamed. There is inflammation in the right neck. Left submandibular gland is not well demonstrated. There is likely a small abscess dorsal to the enlarged duct (3, 57), measuring up to approximately 4.4 mm. IMPRESSION: Findings most concordant with right-sided submandibular duct sialolithiasis and obstruction, with a dilated duct, inflammation, and likely an adjacent small abscess. The duct itself appears infected. There is inflammation extending to involve the right floor of mouth, and the right lateral pharyngeal wall extending inferiorly to the level of the right hemilarynx. Findings suggests the possibility of an evolving Favio's angina. Close clinical follow-up is suggested. The critical result notification system was initiated by Dr. Jose Balbuena at 07:26 PM on 02/06/2020. The above critical result findings were discussed with Angy Pearson by Dr. Jose Balbuena at 07:34 PM on 02/06/2020.
== END 2020-02-06 12:17 | disposition home or self-care (01) ==
LOC: DI 12:16
PROVIDERS: ATTEND Family Medicine
DX: K11.8 Other diseases of salivary glands (principal); K12.1 Other forms of stomatitis; J02.9 Acute pharyngitis, unspecified
CPT/HCPCS: 70491; Q9967

== ENCOUNTER 2020-02-20 08:00 | Outpatient (CLI) | payer MEDICARE, BC | END 2020-02-20 23:59 | disposition home or self-care (01) | LOC: LAB.WCP 08:00 | PROVIDERS: ATTEND Family Medicine | DX: I48.0 Paroxysmal atrial fibrillation (principal); Z79.01 Long term (current) use of anticoagulants ==

== ENCOUNTER 2020-02-27 08:00 | Outpatient (CLI) | payer MEDICARE, BC | END 2020-02-27 23:59 | disposition home or self-care (01) | LOC: LAB.WCP 08:00 | PROVIDERS: ATTEND Family Medicine | DX: I48.0 Paroxysmal atrial fibrillation (principal); Z79.01 Long term (current) use of anticoagulants ==

== ENCOUNTER 2020-03-11 08:00 | Outpatient (CLI) | payer MEDICARE, BC | END 2020-03-11 23:59 | disposition home or self-care (01) | LOC: LAB.WCP 08:00 | PROVIDERS: ATTEND Family Medicine | DX: I48.0 Paroxysmal atrial fibrillation (principal); Z79.01 Long term (current) use of anticoagulants ==

== ENCOUNTER 2020-04-20 08:00 | Outpatient (CLI) | payer MEDICARE, BC ==
[2020-04-20 19:22] LABS: CALCIUM 9.3 mg/dL (8.5-10.3); CREATININE 1.1 mg/dL (0.4-1.0)
[2020-04-20 19:44] LABS: HB2 TOTAL 10.9 g/dL; HEMOGLOBIN A1C 0.44 g/dL; HEMOGLOBIN A1C % 5.8 % (4.6-6.2)
== END 2020-04-20 23:59 | disposition home or self-care (01) ==
LOC: LAB.WCP 08:00
PROVIDERS: ATTEND Nurse Practitioner Family
DX: E11.9 Type 2 diabetes mellitus without complications (principal)
CPT/HCPCS: 36415; 80048; 83036

== ENCOUNTER 2020-04-21 12:58 | Outpatient (CLI) | payer MEDICARE, BC | END 2020-04-21 23:59 | disposition home or self-care (01) | LOC: LAB.R 12:58 | PROVIDERS: ATTEND Family Medicine | DX: R05 Cough (principal); Z20.828 Contact with and (suspected) exposure to other viral communicable diseases ==

== ENCOUNTER 2020-04-21 13:00 | Outpatient (CLI) | payer MEDICARE, BC | END 2020-04-21 23:59 | disposition home or self-care (01) | LOC: LAB.R 13:00 | PROVIDERS: ATTEND Family Medicine | DX: R30.0 Dysuria (principal) | CPT/HCPCS: 87086 ==

== ENCOUNTER 2020-04-21 13:29 | Outpatient (CLI) | payer MEDICARE, BC ==
--- NOTE | 2020-04-21 15:03 | XRAY Report ---
Reason: COUGH WITH FEVER Procedure Date: 04/21/2020 Accession Number: [id number] / [id number] Procedure: WCP - Chest 2 View X-Ray CPT Code: 40272 Final Report FULL RESULT: PROCEDURE: Chest 2 View X-Ray INDICATIONS: COUGH WITH FEVER TECHNIQUE: 2 view(s) of the chest. COMPARISON: Prior chest plain films from 02/14/2019. FINDINGS: Surgical changes and devices: None. Lungs and pleura: No pleural effusions or pneumothorax. Lungs are clear except for a small degree of atelectasis at the right lung base associated with a small subpulmonic pleural effusion and blunting of the costophrenic sulcus on the right laterally in an area previously normal in appearance in February of last year.. Mediastinum: Mediastinal contours are normal. Heart size is normal. Bones and chest wall: No suspicious bony abnormalities. Soft tissues appear unremarkable. IMPRESSION: A mass lesion is not seen but there is a new finding of a small subpulmonic right pleural effusion blunting the posterior and lateral costophrenic sulcus versus normal appearance in February of last year. Etiology is indeterminate. Continued follow-up is recommended. If there is a significant smoking history CT scanning with contrast may become necessary. Reviewed by: Shay Plascencia MD on 04/21/2020 3:02 PM PDT Approved by: Shay Plascencia MD on 04/21/2020 3:02 PM PDT Station ID: [id number]
== END 2020-04-21 23:59 | disposition home or self-care (01) ==
LOC: DI.WCP 13:29
PROVIDERS: ATTEND Family Medicine
DX: J90 Pleural effusion, not elsewhere classified (principal); R30.0 Dysuria; Z20.828 Contact with and (suspected) exposure to other viral communicable diseases
CPT/HCPCS: 71046; 87086

== ENCOUNTER 2020-06-09 08:00 | Outpatient (CLI) | payer MEDICARE, BC ==
[2020-06-09 18:43] LABS: ALBUMIN 4.1 g/dL (3.2-5.5); ALBUMIN/GLOBULIN RATIO 1.2 (1.0-2.2); CALCIUM 10.3 mg/dL (8.5-10.3); CREATININE 0.9 mg/dL (0.4-1.0); TOTAL PROTEIN 7.6 g/dL (6.7-8.2)
== END 2020-06-09 23:59 | disposition home or self-care (01) ==
LOC: LAB.WCP 08:00
PROVIDERS: ATTEND Family Medicine
DX: E83.52 Hypercalcemia (principal)
CPT/HCPCS: 36415; 80053; 82306; 82330; 83970

== ENCOUNTER 2020-09-15 08:00 | Outpatient (CLI) | payer MEDICARE, BC ==
[2020-09-15 12:10] LABS: BASOPHILS # (AUTO) 0.1 10^3/uL (0.0-0.1); EOSINOPHILS # (AUTO) 0.3 10^3/uL (0.0-0.7); HGB - HEMOGLOBIN 11.9 g/dL (12.0-16.0); LYMPHOCYTES # (AUTO) 1.1 10^3/uL (1.5-3.5); LYMPHOCYTES % (AUTO) 20.4 %; MEAN CORPUSCULAR HEMOGLOBIN 29.5 pg (27.0-31.0); MEAN CORPUSCULAR HGB CONC 32.2 g/dL (32.0-36.0); MEAN CORPUSCULAR VOLUME 91.6 fL (81.0-99.0); MEAN PLATELET VOLUME 11.6 fL (7.9-10.8); MONOCYTES # (AUTO) 0.6 10^3/uL (0.0-1.0); MONOCYTES % (AUTO) 12.1 %; NEUTROPHILS # (AUTO) 3.1 10^3/uL (1.5-6.6); NEUTROPHILS % (AUTO) 60.1 %; PLT - PLATELET COUNT 170 10^3/uL (130-450); RED BLOOD COUNT 4.04 10^6/uL (4.20-5.40); RED CELL DISTRIBUTION WIDTH 14.3 % (12.0-15.0); WHITE BLOOD COUNT 5.1 x10^3/uL (4.8-10.8)
[2020-09-15 12:30] LABS: MICROALBUM/CREATININE RATIO,UR 21.9 ug/mg (<30.0); MICROALBUMIN,URINE 0.7 mg/dL (0-300.0)
[2020-09-15 12:34] LABS: ALBUMIN 4.3 g/dL (3.2-5.5); ALBUMIN/GLOBULIN RATIO 1.3 (1.0-2.2); ALKALINE PHOSPHATASE 38 IU/L (42-121); ALT ALANINE AMINOTRANSFERASE 28 IU/L (10-60); AST ASPARTATE AMINOTRANSFERASE 30 IU/L (10-42); BILIRUBIN,TOTAL 1.2 mg/dL (0.2-1.0); BUN - BLOOD UREA NITROGEN 26 mg/dL (6-20); CALCIUM 10.3 mg/dL (8.5-10.3); CARBON DIOXIDE - CO2 31 mmol/L (21-32); CHLORIDE 96 mmol/L (101-111); CHOL/HDL RATIO 2.5 (<4.4); CHOLESTEROL 240 mg/dL; CREATININE 1.3 mg/dL (0.4-1.0); GLUCOSE 109 mg/dL (70-100); HDL CHOLESTEROL 97 mg/dL; LDL CHOLESTEROL,CALCULATED 131 mg/dL; LDL/HDL RATIO 1.4 (<4.4); SODIUM 136 mmol/L (135-145); TOTAL PROTEIN 7.7 g/dL (6.7-8.2); VLDL CHOLESTEROL 12 mg/dL
[2020-09-15 12:53] LABS: HEMOGLOBIN A1c% 5.9 % (4.27-6.07)
== END 2020-09-15 23:59 | disposition home or self-care (01) ==
LOC: LAB.WCP 08:00
PROVIDERS: ATTEND Family Medicine
DX: E11.9 Type 2 diabetes mellitus without complications (principal); R53.83 Other fatigue
CPT/HCPCS: 36415; 80053; 80061; 82043; 82570; 83036; 83721; 84443; 85025

== ENCOUNTER 2020-11-15 08:00 | Outpatient (CLI) | payer MEDICARE, BC | END 2020-11-15 23:59 | disposition home or self-care (01) | LOC: LAB.WCP 08:00 | PROVIDERS: ATTEND Psychiatry & Neurology Psychiatry | DX: F41.1 Generalized anxiety disorder (principal); F32.9 Major depressive disorder, single episode, unspecified; R41.3 Other amnesia | CPT/HCPCS: 36415; 82607; 82746; 83090 ==

== ENCOUNTER 2021-06-28 13:53 | Outpatient (CLI) | payer MEDICARE, BC ==
[2021-06-28 18:33] LABS: BASOPHILS # (AUTO) 0.1 10^3/uL (0.0-0.1); BASOPHILS % (AUTO) 1.2 %; EOSINOPHILS # (AUTO) 0.3 10^3/uL (0.0-0.7); EOSINOPHILS % (AUTO) 5.1 %; HCT - HEMATOCRIT 36.1 % (37.0-47.0); HGB - HEMOGLOBIN 11.5 g/dL (12.0-16.0); LYMPHOCYTES # (AUTO) 1.2 10^3/uL (1.5-3.5); LYMPHOCYTES % (AUTO) 20.7 %; MEAN CORPUSCULAR HEMOGLOBIN 30.3 pg (27.0-31.0); MEAN CORPUSCULAR HGB CONC 31.9 g/dL (32.0-36.0); MEAN CORPUSCULAR VOLUME 95.3 fL (81.0-99.0); MONOCYTES # (AUTO) 0.7 10^3/uL (0.0-1.0); MONOCYTES % (AUTO) 12.1 %; NEUTROPHILS # (AUTO) 3.5 10^3/uL (1.5-6.6); NEUTROPHILS % (AUTO) 60.5 %; PLT - PLATELET COUNT 165 10^3/uL (130-450); RED BLOOD COUNT 3.79 10^6/uL (4.20-5.40); RED CELL DISTRIBUTION WIDTH 13.6 % (12.0-15.0); WHITE BLOOD COUNT 5.7 x10^3/uL (4.8-10.8)
[2021-06-28 18:39] LABS: ALBUMIN 4.1 g/dL (3.2-5.5); ALBUMIN/GLOBULIN RATIO 1.4 (1.0-2.2); ALKALINE PHOSPHATASE 39 IU/L (42-121); ALT ALANINE AMINOTRANSFERASE 25 IU/L (10-60); AST ASPARTATE AMINOTRANSFERASE 31 IU/L (10-42); BILIRUBIN,TOTAL 0.8 mg/dL (0.2-1.0); BUN - BLOOD UREA NITROGEN 21 mg/dL (6-20); CALCIUM 9.6 mg/dL (8.5-10.3); CARBON DIOXIDE - CO2 33 mmol/L (21-32); CHLORIDE 101 mmol/L (101-111); CHOL/HDL RATIO 2.1 (<4.4); CHOLESTEROL 206 mg/dL; CREATININE 0.9 mg/dL (0.4-1.0); GFR - MDRD 61 (>89); GLUCOSE 86 mg/dL (70-100); HDL CHOLESTEROL 100 mg/dL; LDL CHOLESTEROL,CALCULATED 90 mg/dL; LDL/HDL RATIO 0.9 (<4.4); POTASSIUM 4.1 mmol/L (3.5-5.0); SODIUM 143 mmol/L (135-145); TOTAL PROTEIN 7.1 g/dL (6.7-8.2); TRIGLYCERIDES 81 mg/dL; VLDL CHOLESTEROL 16 mg/dL
[2021-06-28 20:31] LABS: ESTIMATED AVERAGE GLUCOSE 120 mg/dL (70-100); HEMOGLOBIN A1c% 5.8 % (4.27-6.07)
== END 2021-06-28 23:59 | disposition home or self-care (01) ==
LOC: LAB.WCP 13:53
PROVIDERS: ATTEND Family Medicine
DX: R41.3 Other amnesia (principal); I10 Essential (primary) hypertension; E11.9 Type 2 diabetes mellitus without complications
CPT/HCPCS: 36415; 80053; 80061; 83036; 83721; 85025

== ENCOUNTER 2022-04-10 08:00 | Outpatient (CLI) | payer MEDICARE, BC | END 2022-04-10 23:59 | disposition home or self-care (01) | LOC: LAB.N 08:00 | PROVIDERS: ATTEND Physician Assistant Medical | DX: N30.00 Acute cystitis without hematuria (principal) | CPT/HCPCS: 87086; 87181 ==

== ENCOUNTER 2023-12-18 11:07 | Outpatient (CLI) | payer MEDICARE, BC ==
--- NOTE | 2023-12-18 12:05 | Sleep Patient Instructions ---
Sleep Center Visit Summary - Patient Visit Information Reason for Visit: Initial consultation - Patient Instructions Additional Instructions: You will be completing a titration sleep study in our sleep lab where you will be sleeping with the BiPAP machine on and we will be adjusting your pressures to find your optimal pressure settings. Once we have your results back, we will call you and schedule a follow up to go over the results. You will be called by our office staff to schedule your follow up, but you may contact us with any questions or issue as needed. - Clinic Information Contact: [facility] [address] [place] [address] [email or web address] T: [phone]
--- NOTE | 2023-12-18 12:18 | SLEEP CARE CONSULTATION ---
Information from patient questionnaire entered by Neeta Ruiz. I have reviewed and concur with the information entered by Neeta Ruiz. This document represents the service I personally performed and the decisions made by me, Shannon Douglas ARNP. History of Present Illness Service Date and Time: 12/18/2023 1107 Reason for Visit: New patient, Previously diagnosed sleep apnea, sleep apnea on CPAP therapy Chief Complaint: reports: Insomnia, Unrefreshed sleep, Snoring, Excessive daytime sleepiness, Observed pauses in breathing, Fatigue, Frequent awakenings at night Date of Onset: Since 1999 Usual bedtime: 10:00 PM Time it takes to fall asleep: Varies Snores at night: Yes Observed to quit breathing while asleep: Yes Sleeps alone due to snoring: No Number of times waking at night: Varies Reasons for waking at night: reports: Bathroom, Other (Unknown reason) Toss, Turn, or Twitch while sleeping: No Recalls having dreams: Yes Usually gets out of bed at: 9:00 AM Feels refreshed in the morning: No Morning headache: No Sleepy or fatigued during the day: Yes Ever fallen asleep while driving: No Takes day naps: Yes Dreams during day naps: No Prior sleep studies: Yes Year and Where: 2005 [facility] 2020 Type of Sleep Study: Polysomnography Additional HPI information: NAA GRIGSBY was previously diagnosed to have severe, AHI 34.5 seen in [facility] study dated 01-08-2006, obstructive sleep apnea-hypopnea syndrome and comes in today to establish care for BiPAP therapy. She has had more recent sleep studies at last sleep provider clinic as noted in chart notes stating she was severe LUCY with AHI 50 seen in split night study dated 12/12/2018. - Parasomnia Symptoms Ever been unable to move upon waking from sleep: No Walks in sleep: No Talks in sleep: No Ever acted out dreams in sleep: No Ever felt weak in the knees when startled or emotional: No Bothered by creepy, crawly, restless sensations in legs: No Problems with memory or concentration: Yes CPAP Compliance Data - Data Reviewed with Patient Average duration of nightly device use: 8 hours 18 minutes Compliance rate %: 90 (166/180 days used; 06/21/23-12/17/23) Current pressure setting (cmH2O): 25/19 with 10 BPM Average residual AHI: 7.5 (avg on 12/07/23 was 4.7) Average large leak: 17.5 L/min Compliance data discussion: She has a Dreamstation BiPAP S/T 30 that was listed on recall but she has not gotten a replaced. It looks like the machine was last replaced in 01/21/2019. She has been using [employer] for her supplies. She is using a full face mask, [employer] Daksha full, S-M cushion. She last changed her cushion a couple weeks ago. Subjective Missed days of use due to: reports: travel Patient concerns: reports: dry mouth, nose, throat (dry mouth, has chronic dryness; using humidifier). denies: aerophagia, mask discomfort, air blowing in eyes, mask leak noise, condensation in mask/hose, nasal congestion, epistaxis Observed to snore while using device: Yes (occasionally) Current pressure setting perceived as: comfortable On therapy, patient: reports: sleeping better, awakening more refreshed, being more awake and alert during the day, more rested overall. denies: drowsiness while driving Initial [place] Sleepiness Scale score: 14 (in 2005) Current [place] Sleepiness Scale score: 12 (in 2023) Past Medical History Past Medical History: reports: Hypertension, Arthritis, Arrythmia (Atril Fibrillation), Depression, Other (Afib) Social History The patient's occupation is a retiree. Patient is and lives in [place]. Have you smoked in the past 12 months: No Alcohol use: Yes Alcohol amount and frequency: 1 drink a month Caffeine use: Yes Caffeine amount and frequency: 2-3 cups each morning - afternoon Family History Family history of sleep disordered breathing: Yes Family Hx Sleep Apnea: Father: Snoring, Sibling: Snoring, Sleep apnea - Treated Allergies and Home Medications Known drug allergies: Yes (Sulfa, codiene, lovenox) Drug allergies reviewed: Yes Home medication list reviewed: Yes (as listed) Allergy and home medication list: Allergies Sulfa (Sulfonamide Antibiotics) Allergy (Mild, Verified 12/14/23 15:21) Rash codeine Adverse Reaction (Mild, Verified 12/14/23 15:21) Nausea enoxaparin sodium * [From Lovenox] Adverse Reaction (Verified 12/14/23 15:21) Edema Home Medications Apixaban [Eliquis] See Rx Instructions .ROUTE .COMPLEX 12/14/23 [History Confirmed 12/14/23] Aspirin [Adult Aspirin Regimen] See Rx Instructions .ROUTE .COMPLEX 12/14/23 [History Confirmed 12/14/23] Calcium Carbonate [Calcium] See Rx Instructions .ROUTE .COMPLEX 12/14/23 [History Confirmed 12/14/23] Cholecalciferol (Vitamin D3) [Vitamin D3] See Rx Instructions .ROUTE .COMPLEX 12/14/23 [History Confirmed 12/14/23] Escitalopram [Lexapro] See Rx Instructions .ROUTE .COMPLEX 12/14/23 [History Confirmed 12/14/23] Ipratropium [Atrovent] See Rx Instructions .ROUTE .COMPLEX 12/14/23 [History Confirmed 12/14/23] Lactobacillus Combination No.4 [Probiotic] See Rx Instructions .ROUTE .COMPLEX 12/14/23 [History Confirmed 12/14/23] Levothyroxine [Synthroid] See Rx Instructions .ROUTE .COMPLEX 12/14/23 [History Confirmed 12/14/23] Losartan Potassium See Rx Instructions .ROUTE .COMPLEX 12/14/23 [History Confirmed 12/14/23] Magnesium Oxide [Mag Ox] See Rx Instructions .ROUTE .COMPLEX 12/14/23 [History Confirmed 12/14/23] Metoprolol Succinate [Toprol Xl] See Rx Instructions .ROUTE .COMPLEX 12/14/23 [History Confirmed 12/14/23] Metronidazole 1% Gel [Metrogel] See Rx Instructions .ROUTE .COMPLEX 12/14/23 [History Confirmed 12/14/23] Minocycline HCl [Minocycline HCl ER] See Rx Instructions .ROUTE .COMPLEX 12/14/23 [History Confirmed 12/14/23] Mometasone Furoate [Asmanex] See Rx Instructions .ROUTE .COMPLEX 12/14/23 [History Confirmed 12/14/23] Multivit-Min/Iron/FA/Vit K/Lut [Centrum Women 50 Plus Minis Tb] See Rx Instructions .ROUTE .COMPLEX 12/14/23 [History Confirmed 12/14/23] Hellier-3/Dha/Epa/Fish Oil [Fish Oil 1,000 mg Softgel] See Rx Instructions .ROUTE .COMPLEX 12/14/23 [History Confirmed 12/14/23] Omeprazole See Rx Instructions .ROUTE .COMPLEX 12/14/23 [History Confirmed 12/14/23] Psyllium Husk [Fiber] See Rx Instructions .ROUTE .COMPLEX 12/14/23 [History Confirmed 12/14/23] metroNIDAZOLE 0.75% GEL [Flagyl Gel] See Rx Instructions .ROUTE .COMPLEX 12/14/23 [History Confirmed 12/14/23] Review of Systems Weight gain over past 5 years: 0 Cardiovascular: reports: high blood pressure, irregular heart rate or pulse Respiratory: reports: shortness of breath Gastrointestinal: reports: heartburn Urinary: reports: other (Urinary tract infections) Neurological: denies: headaches Psychiatric: reports: depression Ear/Nose/Throat: reports: sinus problems, dry mouth/throat, tonsillectomy, wisdom teeth removed Endocrine: reports: thyroid disease Musculoskeletal: reports: joint pain (/stiffness), neck pain, back pain Immunologic: reports: sneezing (/runny nose) Physical Exam Vital signs obtained and entered by: Shannon Olivia NP Blood Pressure: 141/82 Cuff size: wrist (left) Heart Rate: 64 O2 Saturation: 98 Height: 5 ft 4 in Weight: 158 lb Body Mass Index: 27.1 BMI Classification: Overweight Heart: regular rate and rhythm Lungs: clear bilaterally Impression and Plan 1. Obstructive Sleep Apnea-Hypopnea Syndrome, severe, with good treatment compliance and fair apnea control with elevated residual AHI. On BiPAP therapy, the patient has better sleep quality and is more rested overall. Her average AHI with BiPAP set at 25/19 cm H2O with 10 breaths/min backup rate. I reviewed chart notes with her last appointment in June 2022 where her sleep provider was recommending a BiPAP titration study. Her average AHI is still elevated with pressure set fairly high. Patient is also still using a dream station BiPAP that was on the recall but she never received a replacement. She has had this machine for about 5 years and will be eligible for a replacement next month. I will not update her machine until after the titration study and then we can update the machine and supplies. Patient's pressure setting is still not optimal to control sleep apnea. I advised patient that a titration study will be next step to determine a more optimal pressure setting. They voiced understanding and agreement. Patient's apnea severity and rationale for treatment to reduce apnea, improve sleep quality and reduce cardiovascular and cerebrovascular events was reviewed. I also reviewed the benefit of consistent device use of BiPAP for hypertension, arrhythmia and depression. 2. Overweight, unspecified. Currently patients BMI is 27.1. Obesity increases the risk of apnea, BiPAP pressure requirements and overall health risks especially cardiovascular and diabetes. Thus patient is advised to lose weight. * Continue BiPAP pressure at 25/19 cmH2O with 10 breaths per minute backup * Titration study * Notify me if snoring with mask or feeling that the pressure is too much or too little * Attempt to lose weight * Call this office if any problems using BiPAP * Return for follow up after titration study to go over results, or sooner if concerns arise Counseling Topics: Spare mask, Weight loss health impact Follow up with Sleep Care in: other (after titration study) Plan: BiPAP titration study for elevated AHI Visit Type: In Office Time Spent with Patient (minutes): 42 Provider Statement: I spent 100% of the Face to Face Visit with the patient with greater than 50% spent counseling the patient and coordination of care.
[2023-12-18 12:19] VITALS: BP 141/82; O2SAT 98
== END 2023-12-18 11:08 | disposition home or self-care (01) ==
LOC: SC 11:07
PROVIDERS: ATTEND Nurse Practitioner Family
DX: G47.33 Obstructive sleep apnea (adult) (pediatric) (principal); E66.3 Overweight; Z68.27 Body mass index [BMI] 27.0-27.9, adult
CPT/HCPCS: 99203; G0463; 99212

== ENCOUNTER 2024-01-11 20:45 | Outpatient (CLI) | payer MEDICARE, BC | END 2024-01-11 20:46 | disposition home or self-care (01) | LOC: SC 20:45 | PROVIDERS: ATTEND Nurse Practitioner Family | DX: G47.33 Obstructive sleep apnea (adult) (pediatric) (principal); G47.61 Periodic limb movement disorder; I49.9 Cardiac arrhythmia, unspecified; F32.A Depression, unspecified; I10 Essential (primary) hypertension | CPT/HCPCS: 95811 ==

== ENCOUNTER 2024-01-23 10:15 | Outpatient (CLI) | payer MEDICARE, BC ==
--- NOTE | 2024-01-23 09:05 | SLEEP CARE CONSULTATION ---
Information from patient questionnaire entered by Loraine Alfaro. I have reviewed and concur with the information entered by Loraine Alfaro. This document represents the service I personally performed and the decisions made by , Shannon Douglas ARNP. History of Present Illness Service Date and Time: 01/23/2024 0840 Initial [place] Sleepiness Scale score: 14 (in 2005) Current [place] Sleepiness Scale score: 6 Additional HPI information: NAA GRIGSBY returns via telephone visit for follow up of a manual BiPAP titration study performed on 01/11/2024. Previous study done on 12/12/2018 showed severe obstructive sleep apnea with AHI 50.4. The patient was informed of the following polysomnography findings: BiPAP was initiated at 21/15 cmH2O and titrated up to 26/20 cmH2O. BiPAP 23/16 cmH2O appeared to be optimal (AHI of 1.5 per hour on the pressure). There was supine REM sleep on the pressure. Oxygen saturation was minimally low. Lower BiPAP settings appeared adequate as well. The patient appeared to have tolerated positive airway pressure therapy fairly well. The patients sleep efficiency was poor due to sleep onset insomnia and a prolonged awakening in the middle of the night. I explained how BiPAP machine works and what to expect when using the machine. Using BiPAP every night in order to get used to it was emphasized. Patient advised to put BiPAP mask on before getting into bed so as not to fall asleep without CPAP. Patient does not drink alcohol. Patient was cautioned about risks of drowsy driving until sleepiness symptoms resolve. Patient denies drowsy driving. Patient does not drive. Sleep Study - Results Type of Sleep Study: Polysomnography (TITRATION 01/11/24) Prior sleep studies: Yes Year and Where: 2005 [facility] 2020 Polysomnography/Home Sleep Study results: IMPRESSION: The quality of the study is good. BiPAP was initiated at 21/15 cmH2O and titrated up to 26/20 cmH2O. BiPAP 23/16 cmH2O appeared to be optimal (AHI of 1.5 per hour on the pressure). There was supine REM sleep on the pressure. Oxygen saturation was minimally low. Lower BiPAP settings appeared adequate as well. The patient appeared to have tolerated positive airway pressure therapy fairly well. The patients sleep efficiency was poor due to sleep onset insomnia and a prolonged awakening in the middle of the night. The sleep architecture was abnormal for sleep fragmentation and reduced amount of time spent in REM sleep. There was moderate periodic leg movement of sleep contributing to the sleep fragmentation. Cardiac rhythm was atrial fibrillation. No abnormal behavior (parasomnia) observed during the night. Allergies and Home Medications Known drug allergies: Yes (as listed) Drug allergies reviewed: Yes Home medication list reviewed: Yes (no changes) Allergy and home medication list: Allergies Sulfa (Sulfonamide Antibiotics) Allergy (Mild, Verified 12/14/23 15:21) Rash codeine Adverse Reaction (Mild, Verified 12/14/23 15:21) Nausea enoxaparin sodium * [From Lovenox] Adverse Reaction (Verified 12/14/23 15:21) Edema Review of Systems Review of systems same as previous: Yes (has a cold) Physical Exam Vital signs obtained and entered by: Shannon Olivia NP Blood Pressure: 120/70 (per pt) Height: 5 ft 4 in Weight: 155 lb (per pt) Body Mass Index: 26.6 BMI Classification: Overweight Impression and Plan 1. Obstructive Sleep Apnea-Hypopnea Syndrome, severe. Patient returns after BiPAP titration study to find optimal pressure. BiPAP 23/16 cmH2O appeared to be optimal (AHI of 1.5 per hour on the pressure). Patient is in need of updating her BiPAP machine and would like to transfer to new DME. The patients BiPAP is over 5 years old and of reasonable use. A DWO prescription will be made. Compliance guidelines for new device and follow up discussed. The patients pressure will be changed to BiPAP 23/16 cmH20. Patient advised to contact me if pressure change is uncomfortable so that it can be adjusted. Goals for apnea control discussed. Patient's apnea severity and rationale for treatment to reduce apnea, improve sleep quality and reduce cardiovascular and cerebrovascular events was reviewed. I also reviewed the benefit of consistent device use of BIPAP for hypertension, arrhythmia (atrial fibrillation), depression. 2. Periodic limb movement, moderate, that did contribute to fragmentation of the patients sleep. Periodic limb movement of sleep (PLMS) is characterized by episodes of repetitive limb movements that occur during sleep and usually involve the lower limbs. The etiology is unknown. Caffeine can also aggravate PLMS and should be avoided. Sleep hygiene methods can also improve sleep as well as lifestyle changes such as regular exercise. Patient was advised that no treatment is needed at this time. If symptoms increase, then further evaluation is indicated. 3. Overweight, unspecified. Currently patients BMI is 26.6. Obesity increases the risk of apnea, BiPAP pressure requirements and overall health risks especially cardiovascular and diabetes. Thus patient is advised to lose weight. * Transfer DME * Update machine * Update supplies * Change BiPAP pressure to 23/16 cmH2O * Notify me if snoring with mask or feeling that the pressure is too much or too little * Attempt to lose weight * Call this office if any problems using BiPAP * Return for follow up one month after obtaining new BiPAP, or sooner if concerns arise Counseling Topics: Weight loss health impact Prescriptions: BiPAP (new device), Device supplies (with DME transfer) Follow up with Sleep Care in: other (for compliance visit) Visit Type: Telehealth Phone Video Type: DoximYouMail Patient Location: [facility] Other Participants: Child (Kenan, son) Location of Provider: Office Patient agrees and consents to this telehealth visit type: Yes Patient agrees to have their insurance billed: Yes Time Spent with Patient (minutes): 20 Provider Statement: I spent 100% of the Telehealth Phone Call with the patient with greater than 50% spent counseling the patient and coordination of care.
[2024-01-23 09:12] VITALS: BP 120/70
== END 2024-01-23 10:16 | disposition home or self-care (01) ==
LOC: SC 10:15
PROVIDERS: ATTEND Nurse Practitioner Family
DX: G47.33 Obstructive sleep apnea (adult) (pediatric) (principal); G47.61 Periodic limb movement disorder
CPT/HCPCS: 99442

== ENCOUNTER 2024-06-02 12:08 | Outpatient (CLI) | payer MEDICARE, BC ==
--- NOTE | 2024-06-03 21:34 | SLEEP CARE CONSULTATION ---
Information from patient questionnaire entered by Neeta Ruiz. I have reviewed and concur with the information entered by Neeta Ruiz. This document represents the service I personally performed and the decisions made by me, Shanice Boggs MD, [facility]. History of Present Illness Service Date and Time: 06/02/2024 1208 Previous diagnosis: Severe, Obstructive Sleep Apnea-Hypopnea Syndrome AHI: 50.4 Reason for follow up: first compliance after device update (02/06 set up) Equipment obtained from: Other ([facility]) Prior sleep studies: Yes Year and Where: 2005 [facility] 2020 Type of Sleep Study: Polysomnography (TITRATION 01/11/24) HPI additional information: Ms. Chang was called today by phone for a follow up of nasal BiPAP therapy. She was diagnosed to have severe obstructive sleep apnea-hypopnea syndrome. The patient recently acquired a new AirCurve 11 VAuto from [employer]. She wears a [employer] Daksha full face mask size S-M. She reports using the device almost nightly and all through the night. The compliance report shows usage in 62 nights out of the past 90 nights, averaging 7.8 hours a night. She complained of no particular problem with the device such as soreness on the face, dry nose, epistaxis, nasal congestion or headache. She thinks that the pressure of 23/16 cmH2O is comfortable. On the BiPAP therapy she notices improvement in her sleep quality, and that she wakes up feeling fresher in the morning and more awake/alert during the day. Her notices no snore at all. The average residual AHI is 24.8, mostly central apneas (central apnea index = 14.8); and air leak, 1.5 L/min. Sleep Study - Results Type of Sleep Study: Polysomnography (TITRATION 01/11/24) Prior sleep studies: Yes Year and Where: 2005 [facility] 2020 CPAP Compliance Data - Data Reviewed with Patient Average duration of nightly device use: 7 h 56 min Compliance rate %: 57 Current pressure setting (cmH2O): 23/16 Average residual AHI: 23.6 Subjective Missed days of use due to: reports: other (Nasal congestion) Patient concerns: reports: air blowing in eyes, mask leak noise, nasal congestion, dry mouth, nose, throat Current pressure setting perceived as: comfortable (But maybe slightly low) Initial [place] Sleepiness Scale score: 14 (in 2005) Allergies and Home Medications Drug allergies reviewed: Yes Home medication list reviewed: Yes Allergy and home medication list: Allergies Sulfa (Sulfonamide Antibiotics) Allergy (Mild, Verified 12/14/23 15:21) Rash codeine Adverse Reaction (Mild, Verified 12/14/23 15:21) Nausea enoxaparin sodium * [From Lovenox] Adverse Reaction (Verified 12/14/23 15:21) Edema Review of Systems Review of systems same as previous: Yes Physical Exam Height: 5 ft 4 in Weight: 159 lb 15.831 oz Body Mass Index: 27.4 BMI Classification: Overweight Impression and Plan IMPRESSION: 1. Obstructive Sleep Apnea-Hypopnea Syndrome, severe (AHI was 34.5 here in 2005), with the patient using a BiPAP. Apparently, since she was originally diagnosed here in 2005, she went to [facility] in [place] and was switched from a CPAP to BiPAP. The BiPAP is not effective due to the high number of central apneas. The central apneas could be from the pressure being too high or over the years she has developed central sleep apnea. I will order a BiPAP to find the optimal pressure setting. She may need a BiPAP S/T or ASV. PLAN: 1. Continue with nasal BiPAP set at 23/16 cmH2O. 2. BiPAP titration study. We will start with the BiPAP S and move to S/T or ASV if the central apneas cannot be controlled. 3. Consider a nasal mask if she can breathe through her nose. 4. Return for follow up after the sleep study. Follow up with Sleep Care in: 1-2 months Plan: BiPAP titration study Visit Type: Telehealth Phone Patient Location: Home Location of Provider: Office Patient agrees and consents to this telehealth visit type: Yes Patient agrees to have their insurance billed: Yes Time Spent with Patient (minutes): 15 Provider Statement: I spent 100% of the Telehealth Phone Call with the patient with greater than 50% spent counseling the patient and coordination of care.
== END 2024-06-02 12:09 | disposition home or self-care (01) ==
LOC: SC 12:08
PROVIDERS: ATTEND Internal Medicine Pulmonary Disease
DX: G47.33 Obstructive sleep apnea (adult) (pediatric) (principal); E66.3 Overweight; Z68.27 Body mass index [BMI] 27.0-27.9, adult
CPT/HCPCS: 99441